=== PATIENT | female | born 1970 | race Caucasian/White ===

== ENCOUNTER 2025-04-07 10:20 | Outpatient (CLI) | payer BC | END 2025-04-07 10:21 | disposition home or self-care (01) | LOC: CSHMAMMO 10:20 | PROVIDERS: ATTEND Family Medicine | DX: Z12.31 Encounter for screening mammogram for malignant neoplasm of breast (principal); R92.333 Mammographic heterogeneous density, bilateral breasts | CPT/HCPCS: 77063; 77067 ==